=== PATIENT | female | born 2005 | race Caucasian/White ===

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

== ENCOUNTER → 2024-03-13 | Outpatient (CLI) | payer OTHER, SELFPAY ==
--- NOTE | 2024-03-13 14:00 | MASS_PTH ---
PATIENT: NANCY CRISTINA LOC: [facility] U#:[id number] AGE/SX: 18/F ROOM: RE03/13/[address]: Dr. Abel Daley MD : 2005 BED: DIS: 03/13/2024 SPEC #: [id number] RECD: 03/13/24 14:57 STATUS: KYLER GUILLERMO #: [id number] JOCELINE: 03/13/24 14:[address]: Abel Daley DEPT: SURGICAL PATHOLOGY RECD BY: Cherelle Pride ENTERED: 03/14/24 10:00 SP TYPE: Mass OTHR DR: Dr. Lance Martin MD Tissues: Axilla, NOS Procedures: Surgery Specimen Level IV HEADER OPERATION: Excision of right axillary mass PRE-OP DIAGNOSIS: Right axillary mass TISSUE SUBMITTED: Right axillary mass MICROSCOPIC DIAGNOSIS Right axillary mass, excision: Focal chronic inflammation and histiocytic reaction. A minute follicular cyst. See comment. / 03/15/2024 COMMENT Inflammatory changes are noted close to the deep margin of the specimen. Findings may represent hidradenitis. Clinical correlation and appropriate follow up are necessary. MICROSCOPIC DESCRIPTION Slides are reviewed. GROSS DESCRIPTION Received in fixative is one container labeled with the patient's name and designated Right axillary mass. The specimen consists of a piece of camacho-white skin ellipse measuring 2.7 x 0.7cm and up to 1.0cm in thickness. The specimen is inked, serially sectioned and submitted entirely in three cassettes. Cassette 1 contains the tips of the skin ellipse. / 03/14/2024 TC:3 CPT:15746
== END | disposition home or self-care (01) ==
LOC: LAB 14:57
PROVIDERS: PCP Family Medicine; Referring Provider Surgery; Visit Provider Surgery
DX: L72.9 Follicular cyst of the skin and subcutaneous tissue, unspecified (principal); L08.9 Local infection of the skin and subcutaneous tissue, unspecified; R22.31 Localized swelling, mass and lump, right upper limb
CPT/HCPCS: 88305